=== PATIENT | male | born 1935 | race African-American/Black ===

== ENCOUNTER 2016-09-11 14:07 | Emergency (ER) ==
[2016-09-11] MEDS ORDERED: MORPHINE 2 MG/ML SYRINGE IM STA (14:17)
[2016-09-11] MEDS ORDERED: ZOFRAN 4 MG/2 ML IM STA (14:17)
--- NOTE | 2016-09-11 14:20 | ED.PDOC ---
General ED Provider: Dr. DAMIÁN BROWN Chief Complaint: Fall Stated Complaint: Fell @ HD center couple days ago. ever since hurting in the lower back shoulders. Time Seen by Physician: 14:18 Information Source: Patient Primary Care Provider: SHELDON GONZALEZ Nursing and Triage Documentation Reviewed and Agree: Yes Trauma/Injury Complaint Exam - Trauma Complaint/Exam Location of Pain or Injury: Reports: RUE, LUE, Back Mechanism of Injury: Reports: Fall Symptoms Are: Still present Timing of Treatment: Immediate Initial Severity: Moderate Current Severity: Moderate Character: Reports: Aching Aggravating: Reports: Movement, Weight-bearing Alleviating: Reports: None Associated Signs and Symptoms: Denies: LOC, Confusion, Memory loss, Lethargy, Vomiting, Bleeding, Bruising, Swelling, Extremity disuse, Painful respiration, Hoarseness, Dysphagia, Hemoptysis, Significant blood loss Penetrating Injury Risk Factors: Reports: None Trauma Findings: Absent: Hemotympanum, Nasal deformity, Dental tenderness, Neck tenderness Differential Diagnoses: Contusions, Fracture, Sprain Review of Systems - Review Of Systems Constitutional: Reports: Weakness Eyes: Reports: No symptoms Ears, Nose, Mouth, Throat: Reports: No symptoms Respiratory: Reports: No symptoms Cardiac: Reports: No symptoms GI: Reports: No symptoms : Reports: No symptoms Musculoskeletal: Reports: Back pain, Joint pain Skin: Reports: No symptoms Neurological: Reports: No symptoms Endocrine: Reports: No symptoms Hematologic/Lymphatic: Reports: No symptoms All Other Systems: Reviewed and Negative Past Medical History - Past Medical History Previously Healthy: No Endocrine: Reports: DM 2, Dyslipidemia Cardiovascular: Reports: None Respiratory: Reports: None Hematological: Reports: None Gastrointestinal: Reports: None Genitourinary: Reports: CKD (on HD) Neuro/Psych: Reports: None Musculoskeletal: Reports: Arthritis, Back Pain Cancer: Reports: None - Surgical History General Surgical History: Reports: None - Family History Family History: Reports: None - Social History Smoking Status: Current some day smoker Smoking Cessation Counseling Time: > 3 min - 10 min Hx Substance Use: No Alcohol Screening: None - Immunizations Tetanus Shot up to Date: Yes Physical Exam - Physical Exam Appearance: Ill-appearing, Thin Pain Distress: Moderate Eyes: MARY, EOMI, Conjunctiva clear ENT: Ears normal, Nose normal, Oropharynx normal Respiratory: Airway patent, Breath sounds clear, Breath sounds equal, Respirations nonlabored Cardiovascular: RRR, Pulses normal, No rub, No murmur GI/: Soft, Nontender, No masses, Bowel sounds normal, No Organomegaly Musculoskeletal: Normal strength, ROM intact, No edema, No calf tenderness Skin: Warm, Dry, Normal color Neurological: Sensation intact, Motor intact, Reflexes intact, Cranial nerves intact, Alert, Oriented Psychiatric: Affect appropriate, Mood appropriate Interpretation - Radiology Interpretation Radiology Interpretation By: Radiologist Radiology Results: Negative Exam Interpreted: CT Scan Critical Care Note - Critical Care Note Total Time (mins): 0 Course - Course Orders, Labs, Meds: Orders Category Date Time Status Morphine Sulfate [Morphine 2 mg/ml Syringe] MEDS 09/11/16 14:17 Discontinued 2 mg IM ONCE STA Ondansetron HCl/Pf [Zofran 4 mg/2 ml] MEDS 09/11/16 14:17 Discontinued 4 mg IM ONCE STA CT CHEST W/O CONTRAST Stat RADS 09/11/16 14:[address] LUMBAR SPINE W/O CONTRAST Stat RADS 09/11/16 14:[address] PELVIS W/O CONTRAST Stat RADS 09/11/16 14:17 Completed SHOULDER, LEFT MIN 2V Stat RADS 09/11/16 14:17 Completed SHOULDER, RIGHT MIN 2V Stat RADS 09/11/16 14:17 Completed Medications Discontinued Medications Generic Name Dose Route Start Last Admin Trade Name Carlosq PRN Reason Stop Dose Admin Morphine Sulfate 2 mg 09/11/16 14:17 09/11/16 14:58 Morphine 2 Mg/Ml Syringe IM 09/11/16 14:18 2 mg ONCE STA Administration Ondansetron HCl 4 mg 09/11/16 14:17 09/11/16 14:56 Zofran 4 Mg/2 Ml IM 09/11/16 14:18 4 mg ONCE STA Administration Vital Signs: Temp Pulse Resp BP Pulse Ox 09/11/16 14:07 96.8 F L 98 H 20 143/78 H 98 Departure - Departure Time of Disposition: 15:36 Disposition: HOME SELF-CARE Discharge Problem: Falls Back pain Qualifiers: Back pain location: low back pain Chronicity: acute Back pain laterality: midline Sciatica presence: unspecified whether sciatica present Qualifier Code: (M54.5) Low back pain Instructions: Acute Low Back Pain (ED) Condition: Stable Pt referred to PMD for follow-up: Yes Additional Instructions: fall risk discussed gradual exercise Prescriptions: Hydrocodone/Acetaminophen [Lloyd 5-325 Tablet] 1 tab PO TID PRN #12 tablet PRN Reason: PAIN Prednisone 10 mg PO BIDWM #14 tablet Allergies/Adverse Reactions: Allergies No Known Allergies Allergy (Unverified 09/11/16 14:19) Home Medications: Ambulatory Orders Aspirin [Aspirin EC] 81 mg PO DAILY 02/14/13 Calcium Acetate 667 mg PO 2-3XD 02/14/13 Nateglinide [Starlix] 120 mg PO TID 02/14/13 Sitagliptin Phosphate [Januvia] 25 mg PO DAILY 02/14/13 Hydrocodone/Acetaminophen [Lloyd 5-325 Tablet] 1 tab PO TID PRN #12 tablet 09/11 Prednisone 10 mg PO BIDWM #14 tablet 09/11/16
[2016-09-11 14:21] VITALS: BP 143/78; TEMP 96.8; BMI 18.3
--- NOTE | 2016-09-11 15:19 | DI ---
EXAM: Radiographs, right shoulder HISTORY: Initial presentation for right shoulder trauma due to a fall. COMPARISON: None available. TECHNIQUE: Two views. FINDINGS: Bone mineralization is decreased. There is no fracture or dislocation. Moderate acromio clavicular osteoarthritis noted at the inferior acromial spur also present. A left-sided central ve nous catheter is partially imaged. IMPRESSION: No fracture or dislocation.
--- NOTE | 2016-09-11 15:19 | DI ---
EXAM: Radiographs, left shoulder HISTORY: Initial presentation for left shoulder trauma. COMPARISON: None available. TECHNIQUE: Two views. FINDINGS: Bone mineralization is decreased. There is no fracture or dislocation. Moderate acromio clavicular osteoarthritis noted. There is spurring off the inferior acromion. Left internal jugula r approach central venous catheter is partially imaged. Atherosclerotic calcifications noted in the aorta and left carotid artery. IMPRESSION: No fracture or dislocation.
--- NOTE | 2016-09-11 15:23 | CT ---
EXAM: CT pelvis without contrast HISTORY: Fall with injury. COMPARISON: Same day CT lumbar spine and CT abdomen pelvis 03/11/2016 TECHNIQUE: Serial axial images of the pelvis were obtained without contrast and reviewed in multipl e planes. FINDINGS: There is degenerative change of the hips with mild narrowing and osteophyte formation. There is no cortical irregularity or displaced fracture. Pubic symphysis and sacroiliac joints are intact with mild degenerative change. There is degenerative disease of the lower lumbar spine. The soft tissue s in the pelvis demonstrate moderate atherosclerotic disease. The colon and small bowel in the pelv is are normal. Urinary bladder is distended. The prostate is mildly enlarged. IMPRESSION: 1. No displaced fracture or acute abnormality of the pelvis. 2. Scattered degenerative disease of the hips and lumbar spine/sacroiliac joints. 2. Moderate to severe atherosclerotic disease.
--- NOTE | 2016-09-11 15:23 | CT ---
EXAM: CT lumbar spine without contrast. HISTORY: Initial presentation for back injury. COMPARISON: Radiograph 09/19/2013. Abdominal CT 03/11/2016. TECHNIQUE: Multiple axial images of the lumbar spine were obtained without intravenous contrast. I mages were reformatted in the sagittal and coronal planes. FINDINGS: The normal curvature and alignment are maintained. Vertebral body and intervertebral dis c heights are normal. No fracture or subluxation is seen. Disc osteophyte formation, facet arthrop athy and thickening of ligamentum flavum cause mild central canal stenosis at L3-4 and L4-5 along wi th multilevel neural foraminal narrowing throughout the lumbar spine, generally mild. Adjacent soft tissues are unremarkable. Extensive atherosclerotic calcifications are present. Kidneys are relati vely small with bilateral cyst, including a peripherally calcified left renal cyst which is better s een on prior abdominal CT IMPRESSION: No acute abnormality of the lumbar spine.
--- NOTE | 2016-09-11 15:39 | CT ---
Exam: CT scan of the chest without intravenous contrast administration. Comparison: 03/11/2016. Reason for exam: Fall injury. FINDINGS: Similar appearing 5 mm spiculated nodule in the right apex seen on axial image number 13. This is n ot significantly changed when compared to the prior CT scan. The previously described 3 mm right lo wer lobe pleural-based nodule seen on axial image number 56 is also not significantly changed when c ompared to the prior study. No pneumothorax, pleural effusion, or focal consolidation. Chronic sca rring changes are seen in the left lower lobe. Atherosclerotic disease is seen within the aorta and distal arterial vasculature to include the brenda nary vessels. There is a similar appearing calcified paratracheal stripe. Evaluation of the medias tinal lymph nodes is uncertain without intravenous contrast administration. There is a similar appe aring tubular structure in the right internal jugular vein. Left-sided central venous line is uncha nged. No osteoblastic or osteolytic lesions. There is a similar appearing calcified cyst in the left kidney with operative changes in the left upper quadrant. No acute fracture or listhesis. Impression: 1. Similar appearing 5 mm nodule in the right apex and 3 mm nodule in the right lung base. 2. No acute findings are seen within the chest. 3. Similar appearing tubular structure in the right internal jugular vein
== END 2016-09-11 15:54 | disposition home or self-care (01) ==
LOC: ED 14:07
DX: M54.5 Low back pain (principal); M25.512 Pain in left shoulder; M25.511 Pain in right shoulder; W19.XXXA Unspecified fall, initial encounter; F17.210 Nicotine dependence, cigarettes, uncomplicated
CPT/HCPCS: 96372; 99283

== ENCOUNTER 2016-09-15 16:26 | Outpatient (CLI) ==
[2016-09-17 07:15] LABS: % FREE PSA 11.9 % (.); PSA, FREE 1.06 ng/mL
== END 2016-09-15 16:27 | disposition home or self-care (01) ==
LOC: LAB 16:26
PROVIDERS: ATTEND Urology
DX: C61 Malignant neoplasm of prostate (principal)
CPT/HCPCS: 36415; 84153

== ENCOUNTER 2016-11-25 11:48 | Outpatient (CLI) | payer OTHER ==
[2016-11-25 12:18] LABS: ALBUMIN 3.4 g/dL (3.4-5.0); CALCIUM 8.7 mg/dL (8.2-10.2); POTASSIUM 5.8 mmol/L (3.5-5.1)
[2016-11-25 12:19] LABS: ALBUMIN/GLOBULIN RATIO 0.89; ANION GAP 19.8; BILIRUBIN,TOTAL 0.38 mg/dL (0.00-1.20); BUN/CREATININE RATIO 3.4; TOTAL PROTEIN 7.2 g/dL (5.8-8.1)
[2016-11-25 12:23] LABS: CREATININE 8.51 mg/dL (0.60-1.10)
== END 2016-11-25 11:49 | disposition home or self-care (01) ==
LOC: NONPT 11:48
PROVIDERS: ATTEND Internal Medicine
DX: E87.5 Hyperkalemia (principal); E11.9 Type 2 diabetes mellitus without complications
CPT/HCPCS: 80053

== ENCOUNTER 2016-12-22 15:50 | Outpatient (CLI) ==
[2016-12-24 07:18] LABS: % FREE PSA 13.7 % (.); PSA, FREE 1.36 ng/mL
== END 2016-12-22 15:51 | disposition home or self-care (01) ==
LOC: LAB 15:50
PROVIDERS: ATTEND Urology
DX: C61 Malignant neoplasm of prostate (principal)
CPT/HCPCS: 36415; 84153

== ENCOUNTER 2017-01-05 11:24 | Outpatient (CLI) ==
[2017-01-05] MEDS ORDERED: VANCOMYCIN 500 MG in SODIUM CHLORIDE 100 ML IV STA (12:11)
[2017-01-05] MEDS ORDERED: GENTAMICIN SULFATE IV STA (12:11)
[2017-01-05] MEDS ORDERED: SODIUM CHLORIDE IV STA (12:11)
[2017-01-05 12:23] VITALS: BP 168/0; TEMP 96
== END 2017-01-05 11:25 | disposition home or self-care (01) ==
LOC: OPMED 11:24
PROVIDERS: ATTEND Internal Medicine
DX: L08.9 Local infection of the skin and subcutaneous tissue, unspecified (principal)
CPT/HCPCS: 96365; 96367

== ENCOUNTER 2017-01-07 08:42 | Outpatient (CLI) ==
[2017-01-07] MEDS ORDERED: GENTAMICIN SULFATE IV ONE (09:12)
[2017-01-07] MEDS ORDERED: VANCOMYCIN 500 MG in SODIUM CHLORIDE 100 ML IV STA (09:12)
[2017-01-07] MEDS ORDERED: SODIUM CHLORIDE IV ONE (09:12)
[2017-01-08] MEDS ORDERED: SODIUM CHLORIDE IV ONE (09:12)
[2017-01-08] MEDS ORDERED: GENTAMICIN SULFATE IV ONE (09:12)
== END 2017-01-07 08:43 | disposition home or self-care (01) ==
LOC: OPMED 08:42
PROVIDERS: ATTEND Internal Medicine
DX: L08.9 Local infection of the skin and subcutaneous tissue, unspecified (principal)
CPT/HCPCS: 96365; 96366

== ENCOUNTER 2017-02-12 12:25 | Outpatient (CLI) ==
[2017-02-12 12:35] LABS: BASOPHILS # (AUTO) 0.1 K/uL (0-0.2); BASOPHILS % (AUTO) 1.4 % (0.0-3.0); EOSINOPHILS # (AUTO) 0.3 K/ul (0.0-0.7); EOSINOPHILS % (AUTO) 5.6 % (0.0-7.0); IMMATURE GRANULOCYTE % (AUTO) 0.4 % (0.0-5.0); LYMPHOCYTES # (AUTO) 0.7 K/uL (0.60-3.4); LYMPHOCYTES % (AUTO) 14.9 (10.0-50.0); MEAN CORPUSCULAR HEMOGLOBIN 30.1 pg (27.0-31.0); MEAN CORPUSCULAR HGB CONC 33.3 (31.8-35.4); MEAN CORPUSCULAR VOLUME 90.3 fl (80.0-94.0); MONOCYTES # (AUTO) 0.5 K/uL (0.4-2.0); MONOCYTES % (AUTO) 10.6 (0-10); NEUTROPHILS # (AUTO) 3.3 K/ul (2.0-6.9); NEUTROPHILS % (AUTO) 67.1; PLATELET COUNT 347 10^3/uL (140-440); RED BLOOD COUNT 2.99 10^6/ul (4.70-6.10); WHITE BLOOD COUNT 4.98 K/ul (4.2-10.2)
[2017-02-12 13:13] LABS: ALBUMIN 2.8 g/dL (3.4-5.0); ALBUMIN/GLOBULIN RATIO 0.72; ANION GAP 16.5; BILIRUBIN,TOTAL 0.28 mg/dL (0.00-1.20); BUN/CREATININE RATIO 2.74; CALCIUM 8.5 mg/dL (8.2-10.2); CHOL/HDL RATIO 3.3 (4.5-6.4); POTASSIUM 4.5 mmol/L (3.5-5.1); TOTAL PROTEIN 6.7 g/dL (5.8-8.1)
[2017-02-12 13:24] LABS: CREATININE 6.56 mg/dL (0.60-1.10)
== END 2017-02-12 12:26 | disposition home or self-care (01) ==
LOC: NONPT 12:25
PROVIDERS: ATTEND Emergency Medicine
DX: E11.9 Type 2 diabetes mellitus without complications (principal); I10 Essential (primary) hypertension; N18.6 End stage renal disease
CPT/HCPCS: 80053; 80061; 83036; 84443; 85025

== ENCOUNTER 2017-03-03 15:46 | Outpatient (CLI) | END 2017-03-03 15:47 | disposition home or self-care (01) | LOC: NONPT 15:46 | PROVIDERS: ATTEND Urology | DX: C61 Malignant neoplasm of prostate (principal) | CPT/HCPCS: 84153 ==

== ENCOUNTER 2017-03-25 12:12 | Outpatient (CLI) | END 2017-03-25 12:13 | disposition home or self-care (01) | LOC: AMBL 12:12 | DX: R19.7 Diarrhea, unspecified (principal); R53.1 Weakness; Z99.2 Dependence on renal dialysis ==

== ENCOUNTER 2018-01-21 10:23 | Outpatient (CLI) | payer OTHER | END 2018-01-21 10:24 | disposition home or self-care (01) | LOC: AMBL 10:23 | PROVIDERS: ATTEND Internal Medicine Geriatric Medicine | DX: R53.1 Weakness (principal); R41.82 Altered mental status, unspecified; N18.9 Chronic kidney disease, unspecified; Z99.2 Dependence on renal dialysis ==

== ENCOUNTER 2018-03-09 16:57 | Outpatient (CLI) | payer OTHER | END 2018-03-09 17:13 | disposition short-term general hospital (02) | LOC: AMBL 16:57 | PROVIDERS: ATTEND Emergency Medicine | DX: R41.82 Altered mental status, unspecified (principal) ==

== ENCOUNTER 2018-03-13 19:28 | Outpatient (CLI) | END 2018-03-13 19:48 | disposition short-term general hospital (02) | LOC: AMBL 19:28 | PROVIDERS: ATTEND Internal Medicine Geriatric Medicine | DX: I95.9 Hypotension, unspecified (principal); R41.0 Disorientation, unspecified; R40.2421 Glasgow coma scale score 9-12, in the field [EMT or ambulance]; N18.6 End stage renal disease; Z99.2 Dependence on renal dialysis; I48.91 Unspecified atrial fibrillation ==

== ENCOUNTER 2018-03-23 18:55 | Outpatient (CLI) | END 2018-03-23 19:14 | disposition short-term general hospital (02) | LOC: AMBL 18:55 | PROVIDERS: ATTEND Internal Medicine Geriatric Medicine | DX: R41.82 Altered mental status, unspecified (principal); I95.9 Hypotension, unspecified ==

== ENCOUNTER 2018-07-31 19:10 | Outpatient (CLI) | END 2018-07-31 19:29 | disposition short-term general hospital (02) | LOC: AMBL 19:10 | PROVIDERS: ATTEND Family Medicine | DX: R41.82 Altered mental status, unspecified (principal); I95.9 Hypotension, unspecified ==

== ENCOUNTER 2018-08-28 07:28 | Outpatient (CLI) | payer OTHER | END 2018-08-28 07:50 | disposition short-term general hospital (02) | LOC: AMBL 07:28 | PROVIDERS: ATTEND Internal Medicine Geriatric Medicine | DX: E16.2 Hypoglycemia, unspecified (principal); S00.83XA Contusion of other part of head, initial encounter; W19.XXXA Unspecified fall, initial encounter; Y92.129 Unspecified place in nursing home as the place of occurrence of the external cause ==